=== PATIENT | male | born 1965 | race Caucasian/White ===

== ENCOUNTER 2018-01-13 18:51 | Emergency (ER) | payer MEDICAID, OTHER ==
[~2018-01-13] VITALS: Ht 167.6 cm; Wt 64.4 kg
[2018-01-13 18:55] VITALS: BP 141/99
--- NOTE | 2018-01-13 19:42 | Emergency Room Report ---
History of Present Illness General Chief Complaint: Lower Extremity Injury Source: Patient Present Illness HPI 52-year-old male patient presents ER complaining of right knee pain status post one day. Reports that he was walking around last night when he tripped on his dog's ball and twisted his knee. Reports that he did not hit his head or lose consciousness. Reports that he is able to brace himself against the wall. Reports pain and swelling. Reports able to ambulate, reports pain with ambulation. Denies other acute symptoms. Allergies: Coded Allergies: CODEINE (Unverified Allergy, Severe, 02/17/16) Patient History Past Medical History: see triage record Reviewed Nursing Documentation: PMH: Agreed; PSxH: Agreed Nursing Documentation-PMH Past Medical History: No Stated History Hx Cardiac Problems: No Hx Cancer: No Hx Gastrointestinal Problems: No Hx Neurological Problems: No Review of Systems All Other Systems: negative except mentioned in HPI Physical Exam Vital Signs Date Time Temp Pulse Resp B/P (MAP) Pulse Ox O2 Delivery O2 Flow Rate FiO2 01/13/18 18:55 98.3 102 14 141/99 97 Room Air 98.2 Sp02 EP Interpretation: reviewed, normal General Appearance: well appearing, no apparent distress, alert, GCS 15, non- toxic Head: normocephalic, atraumatic Eyes: bilateral eye normal inspection, bilateral eye PERRL ENT: hearing grossly normal, normal pharynx, no angioedema, normal voice, uvula midline, moist mucus membranes Neck: full range of motion Respiratory: lungs clear, normal breath sounds, no rhonchi, no respiratory distress, no accessory muscle use, no wheezing, speaking full sentences Cardiovascular #1: regular rate, rhythm, no edema Musculoskeletal: back normal, digits/nails normal, gait/station normal, normal range of motion - with pain, non-tender, swelling, other - negative anterior posterior drawer chest, no laxity with varus and valgus stress, no erythema, no warmth to touch, tender - anterior knee Neurologic: alert, oriented x3, responsive, motor strength/tone normal, sensory intact Skin: no rash Medical Decision Making PA Attestation Dr. Jenkins is my supervising Physician whom patient management has been discussed with. Diagnostic Impression: Primary Impression: Right knee injury ER Course Pt. presents to the ED c/o right knee pain. Ddx considered but are not limited to fracture, sprain, strain, contusion, dislocation. No erythema, no warmth to touch, no fever, nontoxic appearing, low suspicion for septic joint. Vital signs: are WNL, pt. is afebrile. Blood pressure mildly elevated at this time, will continue to monitor. Denies chest pain, shortness of breath, vision changes, does not require acute intervention at ER at this time. Follow with primary care provider discuss further treatment and referral. Advised on low-sodium diet, advised on diet and exercise. Ordered X-ray and pain medication. ER COURSE Provided with pain medication. An X-ray of the right knee shows no acute fracture, small probable right knee joint effusion, CPPD, per the official [employer] reading. Discuss results with the patient. Provided patient with copy of results. Instructed patient to followup with PCP and discuss results of report with patient, need for further treatment and referral. Likely knee sprain causing pain symptoms, follow-up with primary care provider. JOSE RAMON wrap was applied to the right knee and was checked afterwards by me showing good alignment and support with distal neurovascular functioning intact. patient declined crutches, patient able to ambulate independently without difficulty. Patient instructed on RICE method: rest, ice, compression, elevation. Patient instructed on rest, ice and heat. Patient instructed to be WBAT Followup with primary care provider. Discuss referral to ortho/pain management/ PT as needed. Discuss further imaging with MRI/CT as needed. DISCHARGE: -Rx provided for Ibuprofen for pain symptoms. Patient reports currently being in rehabilitation, currently being urine tested, does not want any opioid medications. At this time pt. is stable for d/c to home. Patient is resting comfortably, in no acute distress, nontoxic appearing, talking without difficulty. Will provide printed patient care instructions, and any necessary prescriptions. Patient instructed to follow with primary care provider in 3 - 5 days and to request further follow-up as needed. Care plan and follow up instructions have been discussed with the patient prior to discharge. Take medications as directed. Patient questions asked and answered. Patient reports understanding and agreement to treatment plan. ER precautions given, patient instructed to return to ER immediately for any new or worsening of symptoms. - Please note that this Emergency Department Report was dictated using [employer] machine tender technology software, occasionally this can lead to erroneous entry secondary to interpretation by the dictation equipment. Other X-Ray Diagnostic Results Other X-Ray Diagnostic Results : X-Ray ordered: right knee # of Views/Limited Vs Complete: 3 View Indication: Pain EP Interpretation: Yes PA Xray: Interpretation reviewed, by supervising MD, and agrees with findings. Interpretation: no dislocation, no soft tissue swelling, no fractures Impression: No acute disease YENI Scribgladys Text Tj Yancey PA-C Last Vital Signs Date Time Temp Pulse Resp B/P (MAP) Pulse Ox O2 Delivery O2 Flow Rate FiO2 01/13/18 18:55 98.3 102 14 141/99 97 Room Air 98.2 Disposition: HOME, SELF-CARE Condition: Stable Scripts Ibuprofen* (MOTRIN*) 800 Mg Tablet 800 MG ORAL Q8H, #30 TAB 0 Refills Prov: Efrem Yancey 01/13/18 Patient Instructions: Knee Sprain Additional Instructions: Patient instructed to follow up with primary care provider and discuss further referral to orthopedics. Patient instructed on RICE method: rest, ice, compression, elevation. Patient instructed to WBAT. Take medications as directed. Patient questions asked and answered. ER precautions given, patient instructed to return to ER immediately for any new or worsening of symptoms. Efrem Yancey Jan 13, 2018 19:42
[2018-01-13] MEDS ORDERED: IBUPROFEN800 MG ORAL (19:59)
--- NOTE | 2018-01-13 20:03 | Diagnostic Imaging Report ---
EXAM: XR Right Knee, 3 views CLINICAL HISTORY: PAIN TECHNIQUE: Three views of the right knee. COMPARISON: No relevant prior studies available. FINDINGS: Bones/joints: Chondrocalcinosis bilateral menisci. Small probable right knee joint effusion. No acute fracture. No dislocation. Soft tissues: Unremarkable. Other findings: Otherwise no abnormality seen. IMPRESSION: 1. CPPD. 2. Small probable right knee joint effusion. 3. Otherwise no abnormality seen.
== END 2018-01-13 20:10 | disposition home or self-care (01) ==
LOC: EMR 19:30
DX: S89.91XA Unspecified injury of right lower leg, initial encounter (principal); Z88.6 Allergy status to analgesic agent; X50.1XXA Overexertion from prolonged static or awkward postures, initial encounter; Y93.01 Activity, walking, marching and hiking; Y92.9 Unspecified place or not applicable
CPT/HCPCS: 99283

== ENCOUNTER 2019-04-09 10:23 | Emergency (ER) | payer MEDICAID ==
[~2019-04-09] VITALS: Ht 167.6 cm; Wt 65.8 kg
[~2019-04-09 10:23] MED LIST: IBUPROFEN800 MG ORAL
[2019-04-09] MEDS ORDERED: NKM (10:37)
--- NOTE | 2019-04-09 10:41 | NUR ---
ED Nurse Note: Pt came in from home due to numbness on L dorsal neck, L arm, L leg, and L side of his lips started around 1999 last night 04/08/19. No slurred speech, vision change noted/reported. Numbness rated 8/10. NIHSS score: 0. AOOx4, vital signs stable at this time, please see Intervention for Vital signs. ERMD at bedside assessing pt. Will cont to monitor. Addendum: 04/09/19 at 1627 by [facility] ED Nurse Note: Pt came in from home due to numbness on L dorsal neck, L arm, L leg, and L side of his lips started around 1999 last night 04/08/19. No slurred speech, vision change noted/reported. Numbness rated 8/10. NIHSS score: 1. AOOx4, vital signs stable at this time, please see Intervention for Vital signs. ERMD at bedside assessing pt. Will cont to monitor.
--- NOTE | 2019-04-09 10:52 | Emergency Room Report ---
History of Present Illness General Chief Complaint: General Complaint Source: Patient Present Illness HPI 53-year-old male with left-sided numbness at 8 PM, symptoms have been constant no aggravating or alleviating factors severity is moderate, no chest pain no shortness of breath, no nausea no vomiting, patient states he has a history of smoking history of bradycardia otherwise no other medical problems. Allergies: Coded Allergies: CODEINE (Unverified Allergy, Severe, 02/17/16) Patient History Past Medical History: see triage record Social History: Reports: smoking Reviewed Nursing Documentation: PMH: Agreed; PSxH: Agreed Nursing Documentation-PMH Hx Cardiac Problems: Yes - bradycardia Hx Cancer: No Hx Gastrointestinal Problems: No Hx Neurological Problems: No Review of Systems All Other Systems: negative except mentioned in HPI Physical Exam Vital Signs Date Time Temp Pulse Resp B/P (MAP) Pulse Ox O2 Delivery O2 Flow Rate FiO2 04/09/19 10:34 98.1 88 19 145/100 (115) 95 Room Air Sp02 EP Interpretation: reviewed, normal General Appearance: well appearing, no apparent distress, alert Head: normocephalic, atraumatic Eyes: bilateral eye PERRL, bilateral eye EOMI ENT: uvula midline, moist mucus membranes Neck: supple, thyroid normal, supple/symm/no masses Respiratory: lungs clear, no respiratory distress, no retraction, no accessory muscle use Cardiovascular #1: normal peripheral pulses, regular rate, rhythm, no edema, no gallop, no murmur Gastrointestinal: non tender, soft, no guarding, no rebound Musculoskeletal: normal inspection Neurologic: alert, oriented x3, cerebellar normal, normal gait, speech normal, other - Cranial nerves II through XII intact, decreased sensation left side, 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 During the course of the patient's stay, I spent a considerable amount of time at the bedside performing serial re-evaluations of the patient's hemodynamic and clinical status because of the recognized potential threat to life or limb in this condition. I then had a chance to review not only all of the available current laboratory and radiographic studies obtained today, but I also reviewed old records available to me at the time. Additionally, any ancillary information available including school age lead teacher records were reviewed. Sequential vital signs were obtained. Critical Care time of 30 minutes was performed exclusive of billable procedures. Medical Decision Making Diagnostic Impression: Primary Impression: Acute CVA (cerebrovascular accident) Additional Impression: Mastoiditis of right side ER Course 53-year-old male presents with left-sided numbness, concerning for possible stroke, full hemibody is having reduced sensation, differential diagnosis includes dissection, stroke, UTI Patient is outside the window for TPA, and vascular intervention last known well time 8pm. MRI shows positive lacunar infarct, patient was given a loading dose of aspirin , patient was also given antibiotics for incidental mastoiditis Patient was accepted by at [place] [facility] 1:48pm Laboratory Tests Test 04/09/19 10:55 White Blood Count 10.8 K/UL (4.8-10.8) Red Blood Count 4.85 M/UL (4.70-6.10) Hemoglobin 14.5 G/DL (14.2-18.0) Hematocrit 42.8 % (42.0-52.0) Mean Corpuscular Volume 88 FL (80-99) Mean Corpuscular Hemoglobin 29.9 PG (27.0-31.0) Mean Corpuscular Hemoglobin Concent 33.9 G/DL (32.0-36.0) Red Cell Distribution Width 11.5 % (11.6-14.8) L Platelet Count 346 K/UL (150-450) Mean Platelet Volume 5.5 FL (6.5-10.1) L Neutrophils (%) (Auto) 64.9 % (45.0-75.0) Lymphocytes (%) (Auto) 26.3 % (20.0-45.0) Monocytes (%) (Auto) 6.1 % (1.0-10.0) Eosinophils (%) (Auto) 1.9 % (0.0-3.0) Basophils (%) (Auto) 0.8 % (0.0-2.0) Prothrombin Time 10.2 SEC (9.30-11.50) Prothrombin Time INR 1.0 (0.9-1.1) PTT 28 SEC (23-33) Urine Color Yellow Urine Appearance Slightly cloudy Urine pH 6 (4.5-8.0) Urine Specific [place] 1.015 (1.005-1.035) Urine Protein Negative (NEGATIVE) Urine Glucose (UA) Negative (NEGATIVE) Urine Ketones Negative (NEGATIVE) Urine Blood Negative (NEGATIVE) Urine Nitrite Negative (NEGATIVE) Urine Bilirubin Negative (NEGATIVE) Urine Urobilinogen 8 MG/DL (0.0-1.0) H Urine Leukocyte Esterase 1+ (NEGATIVE) H Urine RBC 0-2 /HPF (0 - 0) H Urine WBC 0-2 /HPF (0 - 0) Urine Squamous Epithelial Cells Occasional /LPF Urine Bacteria Occasional /HPF (NONE) Sodium Level 139 MMOL/L (136-145) Potassium Level 3.8 MMOL/L (3.5-5.1) Chloride Level 106 MMOL/L (98-107) Carbon Dioxide Level 26 MMOL/L (21-32) Anion Gap 7 mmol/L (5-15) Blood Urea Nitrogen 7 mg/dL (7-18) Creatinine 1.0 MG/DL (0.55-1.30) Estimate Glomerular Filtration Rate > 60 mL/min (>60) Glucose Level 101 MG/DL (74-106) Calcium Level 9.0 MG/DL (8.5-10.1) Total Bilirubin 0.5 MG/DL (0.2-1.0) Aspartate Amino Transferase (AST) 17 U/L (15-37) Alanine Aminotransferase (ALT) 21 U/L (12-78) Alkaline Phosphatase 103 U/L (46-116) Troponin I 0.000 ng/mL (0.000-0.056) Total Protein 7.5 G/DL (6.4-8.2) Albumin 3.6 G/DL (3.4-5.0) Globulin 3.9 g/dL Albumin/Globulin Ratio 0.9 (1.0-2.7) L Triglycerides Level 119 MG/DL (30-150) Cholesterol Level 227 MG/DL (< 200) H LDL Cholesterol 171 mg/dL (<100) H HDL Cholesterol 37 MG/DL (40-60) L Cholesterol/HDL Ratio 6.1 (3.3-4.4) H Lipase 106 U/L (73-393) Urine Opiates Screen Negative (NEGATIVE) Urine Barbiturates Screen Negative (NEGATIVE) Phencyclidine (PCP) Screen Negative (NEGATIVE) Urine Amphetamines Screen Negative (NEGATIVE) Urine Benzodiazepines Screen Negative (NEGATIVE) Urine Cocaine Screen Negative (NEGATIVE) Urine Marijuana (THC) Screen Negative (NEGATIVE) EKG Diagnostic Results EKG Time: 12:29 EP Interpretation: NSR, rate 69, QTc 424, no acute ST elevations, normal axis Rhythm Strip Diag. Results Rhythm Strip Time: 12:35 EP Interpretation: yes Rate: 67 Rhythm: NSR, no PVC's, no ectopy Chest X-Ray Diagnostic Results Chest X-Ray Diagnostic Results : Chest X-Ray Ordered: Yes # of Views/Limited/Complete: 1 View Indication: Other - weakness EP Interpretation: Yes Interpretation: no consolidation, no effusion, no acute cardiopulmonary disease Impression: No acute disease Electronically Signed by: Prieto Reyes MD CT/MRI/US Diagnostic Results CT/MRI/US Diagnostic Results #1: Impression Procedure: CT Head no Contrast Indications: Left-sided weakness and left-sided numbness Technique: Spiral acquisitions obtained through the brain. Angled axial and coronal 5 x 5 mm slices were reconstructed. Total dose length product 1300 mGycm. CTDI vol(s) 62 mGy. Dose reduction achieved using automated exposure control Comparison: 02/17/2016 Findings: There is a lacunar infarct in the right caudate head. This does not appear acute, but is nonetheless new since the previous 2016 exam. There are bilateral symmetric lucencies in the posterior basal ganglia region which are not apparent previously. These probably represent portions of the temporal horns of the lateral ventricles which have enlarged in the interim, but could a slightly represent interim lacunar infarcts. Multiple old lacunar infarcts are also seen in the left basal ganglia region which are not evident previously. No acute intracranial hemorrhage or edema. No mass effect nor midline shift. Normal amanda-white differentiation. The ventricles and extra axial CSF spaces are slightly more prominent than previously but still not frankly enlarged. The visualized orbits and sinuses are unremarkable. The mastoids are clear. The calvarium is intact. Impression: Negative for acute intracranial bleed or mass effect Multiple bilateral basal ganglia lacunar infarcts. These are new since the previous exam of 02/17/2016 but nonetheless do not appear acute. Interim slight cortical and central volume loss The CT scanner at [facility] is accredited by the [employer] and the scans are performed using protocols designed to limit radiation exposure to as low as reasonably achievable to attain images of sufficient resolution adequate for diagnostic evaluation. Dictated By: Todd Maldonado MD Electronically Signed By: Todd Maldonado MD Signed Date/Time 04/09/19 1159 CC: Prieto Reyes MD CT/MRI/US Diagnostic Results #2: Impression Procedure: MRI Brain w/wo Contrast Indication: Left-sided numbness starting at 8:00 PM, abnormal recent brain CT Technique: sagittal T1 fast spin echo, axial T1 and T2 FLAIR PROPELLER, axial T2 FS PROPELLER, T2* GRE, axial diffusion weighted images, post contrast axial and coronal T1 FLAIR PROPELLER images. ADC and exponential ADC maps generated Comparison: Brain CT performed one hour earlier Findings: . There is a focus of restricted diffusion in the right lateral thalamus extending into the posterior limb of the right internal capsule. This demonstrates subtle slightly increased signal on the T2 FLAIR images but no signal abnormality on the T2-weighted images. No definite corresponding finding seen on recent CT. No other foci of restricted diffusion are demonstrated. Old lacunar infarcts are seen in the right caudate head and scattered throughout the left basal ganglia. As described on CT CT scan it is uncertain whether bilateral posterior lateral basal ganglia areas of CSF signal represent lacunar infarcts or CSF within the temporal horns. A few other areas of T2 signal abnormality are seen in the periventricular deep white matter , without corresponding CT abnormality; appearance on T2 FLAIR is suggestive of focal periventricular deep white matter ischemic changes. No acute hemorrhage or edema. No mass effect nor midline shift. No abnormal contrast enhancement. Normal size ventricles and extra axial CSF spaces. Visualized orbits and sinuses are unremarkable. There is evidence of a small focal right mastoid effusion, in retrospect also evident on prior CT scan The vascular flow voids are preserved. Impression: Positive for acute right thalamic/posterior limb internal capsule lacunar infarct. This is nonhemorrhagic Multiple old bilateral basal ganglia lacunar infarcts, as described No unusual contrast enhancement. Negative for acute intracranial bleed or mass effect Evidence of right mastoiditis Critical value findings phoned to Dr. Reyes in the emergency room at the time of interpretation Dictated By: Todd Maldonado MD Electronically Signed By: Todd Maldonado MD Signed Date/Time 04/09/19 1301 CC: Prieto Reyes MD Last Vital Signs Date Time Temp Pulse Resp B/P (MAP) Pulse Ox O2 Delivery O2 Flow Rate FiO2 04/09/19 10:34 98.1 88 19 145/100 (115) 95 Room Air Disposition: XFER [facility] - [place] [facility] Condition: Stable Prieto Reyes MD Apr 09, 2019 10:52
[2019-04-09 10:59] VITALS: BP 143/84
--- NOTE | 2019-04-09 11:01 | NUR ---
ED Nurse Note: Pt to CT scan via wheelchair, no sign of acute distress.
[2019-04-09 11:05] LABS: APPEARANCE,URINE SLIGHTLY CLOUDY; BASOPHILS % (AUTO) 0.8 % (0.0-2.0); BILIRUBIN, URINE NEGATIVE (NEGATIVE); EOSINOPHILS % (AUTO) 1.9 % (0.0-3.0); GLUCOSE, URINE (UA) NEGATIVE (NEGATIVE); HEMATOCRIT 42.8 % (42.0-52.0); HEMOGLOBIN 14.5 G/DL (14.2-18.0); KETONES,URINE NEGATIVE (NEGATIVE); LEUKOCYTE ESTERASE ,URINE 1+ (NEGATIVE); LYMPHOCYTES % (AUTO) 26.3 % (20.0-45.0); MEAN CORPUSCULAR VOLUME 88 FL (80-99); MONOCYTES % (AUTO) 6.1 % (1.0-10.0); NEUTROPHILS % (AUTO) 64.9 % (45.0-75.0); NITRITE,URINE NEGATIVE (NEGATIVE); PH,URINE 6 (4.5-8.0); PLATELET COUNT 346 K/UL (150-450); PROTEIN,URINE NEGATIVE (NEGATIVE); RED BLOOD COUNT 4.85 M/UL (4.70-6.10); RED CELL DISTRIBUTION WIDTH 11.5 % (11.6-14.8); UROBILINOGEN,URINE 8 MG/DL (0.0-1.0); WHITE BLOOD COUNT 10.8 K/UL (4.8-10.8)
[2019-04-09 11:06] LABS: COLOR,URINE YELLOW
[2019-04-09 11:21] LABS: ANION GAP 7 mmol/L (5-15); BLOOD UREA NITROGEN 7 mg/dL (7-18); CARBON DIOXIDE 26 MMOL/L (21-32); CHLORIDE 106 MMOL/L (98-107); POTASSIUM 3.8 MMOL/L (3.5-5.1); SODIUM 139 MMOL/L (136-145)
[2019-04-09 11:32] LABS: ALANINE AMINOTRANSFERASE 21 U/L (12-78); ALBUMIN 3.6 G/DL (3.4-5.0); ALBUMIN/GLOBULIN RATIO 0.9 (1.0-2.7); ALKALINE PHOSPHATASE 103 U/L (46-116); ASPARTATE AMINO TRANSFERASE 17 U/L (15-37); BILIRUBIN,TOTAL 0.5 MG/DL (0.2-1.0); CHOLESTEROL 227 MG/DL (< 200); HDL CHOLESTEROL 37 MG/DL (40-60); TRIGLYCERIDES 119 MG/DL (30-150)
--- NOTE | 2019-04-09 12:04 | Diagnostic Imaging Report ---
Indications: Left-sided weakness and left-sided numbness Technique: Spiral acquisitions obtained through the brain. Angled axial and coronal 5 x 5 mm slices were reconstructed. Total dose length product 1300 mGycm. CTDI vol(s) 62 mGy. Dose reduction achieved using automated exposure control Comparison: 02/17/2016 Findings: There is a lacunar infarct in the right caudate head. This does not appear acute, but is nonetheless new since the previous 2016 exam. There are bilateral symmetric lucencies in the posterior basal ganglia region which are not apparent previously. These probably represent portions of the temporal horns of the lateral ventricles which have enlarged in the interim, but could a slightly represent interim lacunar infarcts. Multiple old lacunar infarcts are also seen in the left basal ganglia region which are not evident previously. No acute intracranial hemorrhage or edema. No mass effect nor midline shift. Normal amanda-white differentiation. The ventricles and extra axial CSF spaces are slightly more prominent than previously but still not frankly enlarged. The visualized orbits and sinuses are unremarkable. The mastoids are clear. The calvarium is intact. Impression: Negative for acute intracranial bleed or mass effect Multiple bilateral basal ganglia lacunar infarcts. These are new since the previous exam of 02/17/2016 but nonetheless do not appear acute. Interim slight cortical and central volume loss The CT scanner at [facility] is accredited by the [employer] and the scans are performed using protocols designed to limit radiation exposure to as low as reasonably achievable to attain images of sufficient resolution adequate for diagnostic evaluation.
--- NOTE | 2019-04-09 12:43 | NUR ---
ED Nurse Note: Pt back from CT, MRI via wheelchair, no sign of acute distress.
[2019-04-09 12:44] VITALS: BP 145/90
--- NOTE | 2019-04-09 13:07 | Diagnostic Imaging Report ---
Indication: Left-sided numbness starting at 8:00 PM, abnormal recent brain CT Technique: sagittal T1 fast spin echo, axial T1 and T2 FLAIR PROPELLER, axial T2 FS PROPELLER, T2* GRE, axial diffusion weighted images, post contrast axial and coronal T1 FLAIR PROPELLER images. ADC and exponential ADC maps generated Comparison: Brain CT performed one hour earlier Findings: . There is a focus of restricted diffusion in the right lateral thalamus extending into the posterior limb of the right internal capsule. This demonstrates subtle slightly increased signal on the T2 FLAIR images but no signal abnormality on the T2-weighted images. No definite corresponding finding seen on recent CT. No other foci of restricted diffusion are demonstrated. Old lacunar infarcts are seen in the right caudate head and scattered throughout the left basal ganglia. As described on CT CT scan it is uncertain whether bilateral posterior lateral basal ganglia areas of CSF signal represent lacunar infarcts or CSF within the temporal horns. A few other areas of T2 signal abnormality are seen in the periventricular deep white matter, without corresponding CT abnormality; appearance on T2 FLAIR is suggestive of focal periventricular deep white matter ischemic changes. No acute hemorrhage or edema. No mass effect nor midline shift. No abnormal contrast enhancement. Normal size ventricles and extra axial CSF spaces. Visualized orbits and sinuses are unremarkable. There is evidence of a small focal right mastoid effusion, in retrospect also evident on prior CT scan The vascular flow voids are preserved. Impression: Positive for acute right thalamic/posterior limb internal capsule lacunar infarct. This is nonhemorrhagic Multiple old bilateral basal ganglia lacunar infarcts, as described No unusual contrast enhancement. Negative for acute intracranial bleed or mass effect Evidence of right mastoiditis Critical value findings phoned to Dr. Reyes in the emergency room at the time of interpretation
[2019-04-09] MEDS ORDERED: Unasyn 3gm Inj IV ONE (13:30)
[2019-04-09] MEDS ORDERED: Unasyn 1.5gm Vial ONE (13:46)
[2019-04-09] MEDS ORDERED: Unasyn 1.5gm Vial IV ONE (14:00)
--- NOTE | 2019-04-09 14:01 | Diagnostic Imaging Report ---
Indications: Left-sided numbness starting at 8:00 PM. Acute basal ganglia infarct demonstrated on recent MRI Technique: 3D [id number] images obtained through the [place] [facility] [place]. MIP reconstructions were generated in multiple rotational projections Comparison: none Findings: Dominant left, slightly smaller right vertebral artery demonstrated. Both vertebral arteries are patent and nonstenotic. Both posterior inferior cerebellar arteries are visualized and are patent. Both anterior inferior cerebellar arteries are patent. Both superior cerebellar arteries are patent, visualized. There is origin of the right posterior cerebral artery with absence of the right P1 segment. The posterior cerebellar artery is patent without significant stenosis. There is normal origin of the left posterior cerebral artery with patent P1 segments and proximal branches. The anterior circulation demonstrates patent bilateral distal internal carotid arteries, patent bilateral carotid siphons, patent and normal caliber bilateral M1 segments. Diffusely small caliber right A1 segment. Larger caliber left A1 segment. Patent anterior communicating artery is demonstrated. Both proximal ophthalmic arteries are visualized, patent No evidence of vascular malformation or aneurysm demonstrated Impression: No evidence of significant proximal intracranial cerebrovascular insufficiency [place] anatomy as described
--- NOTE | 2019-04-09 14:01 | Diagnostic Imaging Report ---
Indication: Reason For Exam: WEAK Technique: One view of the chest Comparison: 02/17/2016 Findings: Lungs and pleural spaces are clear. Heart size is normal. No significant interim change Impression: No acute process
[2019-04-09 14:17] VITALS: BP 141/90
--- NOTE | 2019-04-09 14:27 | Diagnostic Imaging Report ---
Indication: Left-sided numbness 8:00 PM Technique: Axial 2-D [id number] (ASSET) and postcontrast multiphasic coronal TRICKS images obtained of the neck vessels. MIP reconstructions were generated. Comparison: none Findings: There is suggestion of some polypoid plaquing on the 2-D [id number] images at the carotid bifurcations bilaterally, but this is probably artifactual as it is not confirmed on the postcontrast images. There is normal thoracic branching anatomy of the great neck vessels. There is mild narrowing of the left vertebral artery origin. The left vertebral artery is slightly dominant. There is suggestion of narrowing of the distal right vertebral artery, but this is probably artifactual as this is not evident on the dedicated brain MRA images form separately otherwise, widely patent bilateral common and internal carotid arteries. Widely patent bilateral vertebral arteries. Impression: No evidence of extracranial cerebrovascular insufficiency
--- NOTE | 2019-04-09 15:05 | NUR ---
ED Nurse Note: Pt sleeping in bed comfortably. Lung sounds clear, even, non-labored. Vital signs stable.
[2019-04-09 15:57] VITALS: BP 134/86
--- NOTE | 2019-04-09 16:19 | NUR ---
ED Nurse Note: Report given to DANIEL Borrero at [facility]. Awaiting for transportation.
[2019-04-09 17:05] VITALS: BP 142/91
[2019-04-09 17:06] VITALS: BP 142/91
--- NOTE | 2019-04-09 17:06 | NUR ---
ED Nurse Note: Ambulance personels ([facility]) at bedside for transportation. No sign of acute distress.
--- NOTE | 2019-04-12 15:35 | Cardiology Report ---
APPROVED REPORT EKG Measurement Heart [id number] Normal sinus rhythm Normal ECG
== END 2019-04-09 17:06 | disposition short-term general hospital (02) ==
LOC: EMR 11:00
DX: I63.81 Other cerebral infarction due to occlusion or stenosis of small artery (principal); H70.91 Unspecified mastoiditis, right ear; F17.200 Nicotine dependence, unspecified, uncomplicated; Z88.6 Allergy status to analgesic agent
CPT/HCPCS: 36415; 70450; 70544; 70548; 70553; 71045; 80053; 80061; 80307; 81003; 83690; 84484; 85025; 85610; 85730; 93005; 96374; A9585; J0295; Z7502; 99291

== ENCOUNTER 2019-11-20 17:19 | Emergency (ER) | payer MEDICAID ==
[~2019-11-20] VITALS: Ht 165.1 cm; Wt 68.0 kg
[~2019-11-20 17:19] MED LIST changes: +NKM
[2019-11-20 17:30] VITALS: BP 130/98
[2019-11-20] MEDS ORDERED: ASPIR 8181 MG ORAL (17:47)
[2019-11-20 17:57] LABS: BASOPHILS % (AUTO) 0.8 % (0.0-2.0); EOSINOPHILS % (AUTO) 1.3 % (0.0-3.0); HEMATOCRIT 43.5 % (42.0-52.0); HEMOGLOBIN 14.1 G/DL (14.2-18.0); LYMPHOCYTES % (AUTO) 31.8 % (20.0-45.0); MEAN CORPUSCULAR VOLUME 90 FL (80-99); MONOCYTES % (AUTO) 5.9 % (1.0-10.0); NEUTROPHILS % (AUTO) 60.2 % (45.0-75.0); PLATELET COUNT 309 K/UL (150-450); RED BLOOD COUNT 4.82 M/UL (4.70-6.10); RED CELL DISTRIBUTION WIDTH 13.6 % (11.6-14.8); WHITE BLOOD COUNT 11.2 K/UL (4.8-10.8)
--- NOTE | 2019-11-20 17:59 | Diagnostic Imaging Report ---
EXAM: CT Head Without Intravenous Contrast CLINICAL HISTORY: CVA TECHNIQUE: Axial computed tomography images of the head/brain without intravenous contrast. CTDI is 53.4 mGy and DLP is 1072.2 mGy-cm. One or more of the following dose reduction techniques were used: automated exposure control, adjustment of the mA and/or kV according to patient size, use of iterative reconstruction technique. COMPARISON: CT and MRI of 04/09/19. FINDINGS: No intracranial hemorrhage or mass effect. No clear acute large vessel territory infarct. Chronic lacunar infarcts to the right caudate nucleus and posterior limb of the internal capsule/lateral thalamus. The latter is new in the interval, but clearly chronic based on density. Mild diffuse atrophy. The calvarium is intact. Mucosal thickening to the leftward sphenoid sinus with potential air-fluid level. Incompletely assessed mucosal disease in the upper left maxillary sinus. IMPRESSION: No acute intracranial process. Chronic right basal ganglia lacunar infarcts. Leftward sphenoid and maxillary sinus mucosal thickening should be correlated for symptoms of sinusitis.
[2019-11-20 18:10] LABS: ANION GAP 11 mmol/L (5-15); BLOOD UREA NITROGEN 7 mg/dL (7-18); CALCIUM 8.8 MG/DL (8.5-10.1); CARBON DIOXIDE 27 MMOL/L (21-32); CHLORIDE 105 MMOL/L (98-107); CREATININE 1.1 MG/DL (0.55-1.30); POTASSIUM 3.7 MMOL/L (3.5-5.1); SODIUM 143 MMOL/L (136-145)
--- NOTE | 2019-11-20 18:10 | Emergency Room Report ---
History of Present Illness General Chief Complaint: Stroke Symptoms Source: Patient, Medical Record Present Illness HPI 54-year-old male presents to ED for possible stroke. States that since yesterday he has been having slurred speech and R arm weakness. States he has had a prior stroke in the past and had some residual weakness on the left side which has mostly resolved. States he is compliant with his medications. Denies chest pain or shortness of breath. Denies fevers or chills. Denies headache. No other aggravating relieving factors. Denies any other associated symptoms Allergies: Coded Allergies: CODEINE (Unverified Allergy, Severe, 02/17/16) COVID-19 Screening Contact w/high risk pt: No Recent Travel to affected area: No Experienced COVID-19 symptoms?: No COVID-19 Testing performed HEALTH POLICY NURSE: No Patient History Past Medical History: HTN, CVA/TIA Past Surgical History: none Pertinent Family History: none Social History: Denies: smoking, alcohol use, drug use Immunizations: UTD Reviewed Nursing Documentation: PMH: Agreed; PSxH: Agreed Nursing Documentation-PMH Hx Cardiac Problems: Yes - bradycardia, hyperlipidemia Hx Hypertension: Yes Hx Cancer: No Hx Gastrointestinal Problems: No Hx Neurological Problems: No Hx Cerebrovascular Accident: Yes Review of Systems All Other Systems: negative except mentioned in HPI Physical Exam Vital Signs Date Time Temp Pulse Resp B/P (MAP) Pulse Ox O2 Delivery O2 Flow Rate FiO2 /20/20 17:26 99.3 89 20 132/100 (111) 96 Room Air Sp02 EP Interpretation: reviewed, normal General Appearance: no apparent distress, alert, GCS 15, non-toxic Head: normocephalic, atraumatic Eyes: bilateral eye normal inspection, bilateral eye PERRL ENT: hearing grossly normal, normal pharynx, no angioedema, normal voice Neck: full range of motion, supple/symm/no masses Respiratory: chest non-tender, lungs clear, normal breath sounds, speaking full sentences Cardiovascular #1: regular rate, rhythm, no edema Cardiovascular #2: 2+ carotid (R), 2+ carotid (L), 2+ radial (R), 2+ radial (L) , 2+ dorsalis pedis (R), 2+ dorsalis pedis (L) Gastrointestinal: normal bowel sounds, non tender, soft, non-distended, no guarding, no rebound Rectal: deferred Genitourinary: normal inspection, no CVA tenderness Musculoskeletal: back normal, normal range of motion, gait/station normal, non- tender Neurologic: alert, motor strength/tone normal, oriented x3, sensory intact, responsive, other - slured speech Psychiatric: judgement/insight normal, memory normal, mood/affect normal, no suicidal/homicidal ideation Reflexes: 3+ bicep (R), 3+ bicep (L), 3+ tricep (R), 3+ tricep (L), 3+ knee (R) , 3+ knee (L) Skin: other - see nursing skin notes Lymphatic: no adenopathy Medical Decision Making Diagnostic Impression: Primary Impression: CVA (cerebral vascular accident) Qualified Codes: I63.9 - Cerebral infarction, unspecified ER Course Hospital Course 54-year-old male presents with slurred speech, right arm weakness x1 day Differential diagnoses include: VT/unstable angina, SVT/Vtach/AFib, CVA/TIA Clinical course 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 After initial history and physical I ordered labs, EKG, chest x-ray, and CT head labs reviewed- electrolytes ok, troponins negative, no leukocytosis, Hb/Hct stable Chest x-ray- no acute process EKG - NSR, no acute ischemic changes interpreted by me CT brain - no acute process noted, chronic infarcts noted Given aspirin in ED. patient's abdomen started around 6 PM last night. Therefore patient is out of therapeutic window for TPA or thrombolytic therapy. Stroke scale at this time 1 Because of insurance patient will be transferred I. I feel this is a highly complex case requiring extensive working including EKG/Rhythm strip, Xray/CT/US, Blood/urine lab work, repeat exams while in ED, and administration of strong opiates/narcotics for pain control, admission to hospital or close patient follow up. Diagnosis - CVA Transferred in serious condition Labs Test 11/20/19 17:30 11/20/19 17:46 White Blood Count 11.2 K/UL (4.8-10.8) Red Blood Count 4.82 M/UL (4.70-6.10) Hemoglobin 14.1 G/DL (14.2-18.0) Hematocrit 43.5 % (42.0-52.0) Mean Corpuscular Volume 90 FL (80-99) Mean Corpuscular Hemoglobin 29.2 PG (27.0-31.0) Mean Corpuscular Hemoglobin Concent 32.3 G/DL (32.0-36.0) Red Cell Distribution Width 13.6 % (11.6-14.8) Platelet Count 309 K/UL (150-450) Mean Platelet Volume 6.8 FL (6.5-10.1) Neutrophils (%) (Auto) 60.2 % (45.0-75.0) Lymphocytes (%) (Auto) 31.8 % (20.0-45.0) Monocytes (%) (Auto) 5.9 % (1.0-10.0) Eosinophils (%) (Auto) 1.3 % (0.0-3.0) Basophils (%) (Auto) 0.8 % (0.0-2.0) Prothrombin Time 10.7 SEC (9.30-11.50) Prothromb Time International Ratio 1.0 (0.9-1.1) Activated Partial Thromboplast Time 29 SEC (23-33) Sodium Level 143 MMOL/L (136-145) Potassium Level 3.7 MMOL/L (3.5-5.1) Chloride Level 105 MMOL/L (98-107) Carbon Dioxide Level 27 MMOL/L (21-32) Anion Gap 11 mmol/L (5-15) Blood Urea Nitrogen 7 mg/dL (7-18) Creatinine 1.1 MG/DL (0.55-1.30) Estimat Glomerular Filtration Rate > 60 mL/min (>60) Glucose Level 76 MG/DL (74-106) Calcium Level 8.8 MG/DL (8.5-10.1) Total Bilirubin 0.3 MG/DL (0.2-1.0) Aspartate Amino Transf (AST/SGOT) 19 U/L (15-37) Alanine Aminotransferase (ALT/SGPT) 24 U/L (12-78) Alkaline Phosphatase 103 U/L (46-116) Troponin I 0.000 ng/mL (0.000-0.056) Total Protein 7.0 G/DL (6.4-8.2) Albumin 3.8 G/DL (3.4-5.0) Globulin 3.2 g/dL Albumin/Globulin Ratio 1.2 (1.0-2.7) Urine Color Pale yellow Urine Appearance Clear Urine pH 6 (4.5-8.0) Urine Specific [place] 1.010 (1.005-1.035) Urine Protein Negative (NEGATIVE) Urine Glucose (UA) Negative (NEGATIVE) Urine Ketones Negative (NEGATIVE) Urine Blood Negative (NEGATIVE) Urine Nitrite Negative (NEGATIVE) Urine Bilirubin Negative (NEGATIVE) Urine Urobilinogen Normal MG/DL (0.0-1.0) Urine Leukocyte Esterase Negative (NEGATIVE) Urine Opiates Screen Negative (NEGATIVE) Urine Barbiturates Screen Negative (NEGATIVE) Phencyclidine (PCP) Screen Negative (NEGATIVE) Urine Amphetamines Screen Negative (NEGATIVE) Urine Benzodiazepines Screen Negative (NEGATIVE) Urine Cocaine Screen Negative (NEGATIVE) Urine Marijuana (THC) Screen Positive (NEGATIVE) EKG Diagnostic Results Rate: normal Rhythm: NSR ST Segments: no acute changes ASA given to the pt in ED: Yes Rhythm Strip Diag. Results EP Interpretation: yes Rhythm: NSR, no PVC's, no ectopy Chest X-Ray Diagnostic Results Chest X-Ray Diagnostic Results : Chest X-Ray Ordered: Yes # of Views/Limited/Complete: 1 View Indication: Other EP Interpretation: Yes Interpretation: no consolidation, no effusion, no pneumothorax, no acute cardiopulmonary disease Impression: No acute disease Electronically Signed by: Electronically signed by Rick Lowe MD CT/MRI/US Diagnostic Results CT/MRI/US Diagnostic Results : Imaging Test Ordered: CT head Impression COMPARISON: CT and MRI of 04/09/19. FINDINGS: No intracranial hemorrhage or mass effect. No clear acute large vessel territory infarct. Chronic lacunar infarcts to the right caudate nucleus and posterior limb of the internal capsule/lateral thalamus. The latter is new in the interval, but clearly chronic based on density. Mild diffuse atrophy. The calvarium is intact. Mucosal thickening to the leftward sphenoid sinus with potential air-fluid level. Incompletely assessed mucosal disease in the upper left maxillary sinus. IMPRESSION: No acute intracranial process. Chronic right basal ganglia lacunar infarcts. Leftward sphenoid and maxillary sinus mucosal thickening should be correlated for symptoms of sinusitis. Last Vital Signs Date Time Temp Pulse Resp B/P (MAP) Pulse Ox O2 Delivery O2 Flow Rate FiO2 11/20/19 17:30 99.3 86 18 130/98 98 Room Air Status: improved Disposition: SHORT-TERM HOSP Condition: Serious Referrals: [facility],REFERRING (PCP) Rick Lowe MD November 20, 2019 18:09
[2019-11-20 18:15] LABS: ALANINE AMINOTRANSFERASE 24 U/L (12-78); ALBUMIN 3.8 G/DL (3.4-5.0); ALBUMIN/GLOBULIN RATIO 1.2 (1.0-2.7); ALKALINE PHOSPHATASE 103 U/L (46-116); ASPARTATE AMINO TRANSFERASE 19 U/L (15-37); BILIRUBIN,TOTAL 0.3 MG/DL (0.2-1.0)
[2019-11-20 18:33] LABS: APPEARANCE,URINE CLEAR; BILIRUBIN, URINE NEGATIVE (NEGATIVE); COLOR,URINE PALE YELLOW; GLUCOSE, URINE (UA) NEGATIVE (NEGATIVE); KETONES,URINE NEGATIVE (NEGATIVE); LEUKOCYTE ESTERASE ,URINE NEGATIVE (NEGATIVE); NITRITE,URINE NEGATIVE (NEGATIVE); PH,URINE 6 (4.5-8.0); PROTEIN,URINE NEGATIVE (NEGATIVE); UROBILINOGEN,URINE NORMAL MG/DL (0.0-1.0)
[2019-11-20 18:55] VITALS: BP 148/88
[2019-11-20 20:51] VITALS: BP 143/81
[2019-11-20 23:07] VITALS: BP 143/81
--- NOTE | 2019-11-21 09:23 | Diagnostic Imaging Report ---
Procedure: XRAY Chest 1v Reason for study: Chest pain Comparison films: 04/09/2019. FINDINGS: A single one view chest is obtained. Vascularity is normal. The lung mullins are clear bilaterally. Cardiac and mediastinal silhouette are within normal limits. CP angles are sharp. The bony thorax appear unremarkable. IMPRESSION: UNREMARKABLE ONE VIEW CHEST.
== END 2019-11-20 23:07 | disposition short-term general hospital (02) ==
LOC: EMR 17:45
DX: I63.9 Cerebral infarction, unspecified (principal); G81.94 Hemiplegia, unspecified affecting left nondominant side; I10 Essential (primary) hypertension; E78.5 Hyperlipidemia, unspecified
CPT/HCPCS: 36415; 70450; 71045; 80053; 80307; 81003; 84484; 85025; 85610; 85730; 93005; Z7502; 99284